=== PATIENT | female | born 1960 | race Asian ===

== ENCOUNTER 2025-04-04 02:18 | Emergency (ER) | payer MEDICAID, OTHER ==
[~2025-04-04] VITALS: Ht 149.9 cm; Wt 43.2 kg
[2025-04-04 02:36] VITALS: TEMP 98.2
[2025-04-04 03:48] VITALS: BP 147/83; PULSE 76; RESP 18; O2SAT 99
[2025-04-04] MEDS ORDERED: POLY17PO47 PO (03:59)
[2025-04-04] MEDS ORDERED: SODI133E17 PR (03:59)
== END 2025-04-04 04:18 | disposition home or self-care (01) ==
LOC: EMS 02:19
DX: K59.00 Constipation, unspecified (principal); R10.32 Left lower quadrant pain; E78.00 Pure hypercholesterolemia, unspecified; I10 Essential (primary) hypertension
CPT/HCPCS: 74018; 99283

== ENCOUNTER 2025-06-22 16:48 | Emergency (ER) | payer MEDICARE, OTHER ==
[~2025-06-22] VITALS: Ht 147.3 cm; Wt 43.0 kg
[~2025-06-22 16:48] MED LIST: POLY17PO47 PO; SODI133E17 PR
[2025-06-22 17:24] VITALS: TEMP 97.9
[2025-06-22] MEDS: ACETAMINOPHEN 325 MG TABLET PO ONE (18:36)
[2025-06-22] MEDS: IBUPROFEN 600 MG TABLET PO ONE (18:36)
[2025-06-22 21:28] VITALS: BP 155/74; PULSE 70; RESP 18; O2SAT 100
== END 2025-06-22 21:35 | disposition home or self-care (01) ==
LOC: EMS 17:05
DX: G89.29 Other chronic pain (principal); M25.561 Pain in right knee; M54.50 Low back pain, unspecified; E78.00 Pure hypercholesterolemia, unspecified; I10 Essential (primary) hypertension; Z79.899 Other long term (current) drug therapy
CPT/HCPCS: 72100; 99284; 73564-TC; Z7502; Z7610